=== PATIENT | female | born 1985 | race African-American/Black ===

== ENCOUNTER 2018-10-03 11:10 | Observation (INO) | payer OTHER ==
[2018-10-03 13:34] LABS: ADD MAN DIFF? NO
[2018-10-03] MEDS: DIPHTH/TET/ACEL PERTUSS (ADULT) 0.5 ML VIAL IM* (13:56)
[2018-10-03 13:58] LABS: ADD UMIC YES; UR ASCORBIC ACID NEGATIVE (NEGATIVE); UR BACTERIA FEW /HPF (NONE SEEN); UR BILIRUBIN (Dip) NEGATIVE (NEGATIVE); UR BLOOD (Dip) 3+ mg/dL (NEGATIVE); UR CLARITY CLOUDY (CLEAR); UR COLOR AMBER (YELLOW); UR GLUCOSE (Dip) NEGATIVE (NEGATIVE); UR KETONES (Dip) NEGATIVE (NEGATIVE); UR LEUKOCYTE ESTERASE (Dip) 2+ Leu/ul (NEGATIVE); UR NITRITE (Dip) NEGATIVE (NEGATIVE); UR RBC > 182 /HPF (0-5); UR TOTAL PROTEIN (Dip) 2+ mg/dl (NEGATIVE); UR UROBILINOGEN (Dip) 1+ mg/dL (NEGATIVE); UR WBC > 182 /HPF (0-5)
[2018-10-03 14:07] LABS: INR 1.01; PROTIME 13.4 Sec (11.9-14.9)
[2018-10-03 14:08] LABS: PARTIAL THROMBOPLASTIN TIME 31.1 Sec (23.0-35.0)
[2018-10-03 14:11] LABS: LIPASE 66 U/L (23-300)
[2018-10-03 14:11] LABS: ALANINE AMINOTRANSFERASE 42 IU/L (13-69); ALBUMIN 3.6 g/dl (3.3-4.9); ALKALINE PHOSPHATASE 101 IU/L (42-121); ANION GAP 12 (5-13); ASPARTATE AMINO TRANSFERASE 34 IU/L (15-46); BILIRUBIN,INDIRECT 0.1 mg/dl (0-1.1); BILIRUBIN,TOTAL 0.1 mg/dl (0.2-1.3); BLOOD UREA NITROGEN 14 mg/dl (7-20); CALCIUM 9.4 mg/dl (8.4-10.2); CARBON DIOXIDE 24 mmol/L (21-31); CHLORIDE 105 mmol/L (97-110); CREATININE 0.67 mg/dl (0.44-1.00); Estimated GFR > 60 mL/min (>60); GLUCOSE 116 mg/dl (70-220); POTASSIUM 3.8 mmol/L (3.5-5.1); SODIUM 141 mmol/L (135-144); TOTAL PROTEIN 7.6 g/dl (6.1-8.1)
[2018-10-03 14:13] LABS: ABNORMAL IP MESSAGE 1; BASOPHILS % 0.3 % (0.0-2.0); EOSINOPHILS % 0.7 % (0.0-7.0); HEMATOCRIT 22.2 % (37.0-47.0); LYMPHOCYTES # 1.3 10^3/ul (0.8-2.9); LYMPHOCYTES % 21.9 % (15.0-51.0); MEAN CORPUSCULAR HEMOGLOBIN 15.6 pg (29.0-33.0); MEAN CORPUSCULAR HGB CONC 27.9 g/dl (32.0-37.0); MEAN CORPUSCULAR VOLUME 55.9 fl (82.0-101.0); MEAN PLATELET VOLUME 9.7 fl (7.4-10.4); MONOCYTE # 0.7 10^3/ul (0.3-0.9); MONOCYTES % 10.9 % (0.0-11.0); NEUTROPHIL # 3.9 10^3/ul (1.6-7.5); NEUTROPHILS % 65.7 % (39.0-77.0); PLATELET COUNT 349 10^3/UL (140-415); RED BLOOD COUNT 3.97 10^6/ul (4.20-5.40); RED CELL DISTRIBUTION WIDTH 21.2 % (11.5-14.5)
[2018-10-03 14:14] LABS: POSITIVE DIFF @See below
[2018-10-03 14:16] LABS: HEMOGLOBIN 6.2 g/dl (12.0-16.0); PATH REVIEW? YES
[2018-10-03 14:51] LABS: RETICULOCYTE RBC 3.93
[2018-10-03 15:17] LABS: LACTATE DEHYDROGENASE 474 IU/L (313-618)
[2018-10-03 15:20] LABS: ANISOCYTOSIS 3+ (0-0); BAND NEUTROPHILS #M 0.1 10^3/ul (0.0-0.6); BAND NEUTROPHILS % (M) 3 % (0-4); EOSINOPHILS % (M) 2 % (0-7); HYPOCHROMASIA 3+ (0-0); LYMPHOCYTES % (M) 17 % (15-51); MICROCYTOSIS 3+ (0-0); MONOCYTE #M 0.3 10^3/ul (0.3-0.9); MONOCYTES % (M) 5 % (0-11); OVALOCYTES 1+ (0-0); PLATELET ESTIMATE NORMAL; POIKILOCYTOSIS 1+ (0-0); SEG NEUT #M 4.4 10^3/ul (1.6-7.5); SEGMENTED NEUTROPHILS (M) % 73 % (39-77)
[2018-10-03 15:28] LABS: TOTAL IRON BINDING CAPACITY 432 ug/dl (241-421)
[2018-10-03] MEDS: CIPROFLOXACIN 400MG/D5W 200 ML IVPB (15:37)
[2018-10-03 15:39] LABS: IRON < 10 ug/dl (35-150)
[2018-10-03 15:53] LABS: FERRITIN 15.9 ng/ml (6.2-137.0)
[2018-10-03] MEDS ORDERED: ONDANSETRON 4 MG INJ IV ×2 (16:00→17:30)
[2018-10-03] MEDS ORDERED: ACETAMINOPHEN 325 MG TAB PO ×2 (16:00→17:30)
[2018-10-03] MEDS ORDERED: NACL 0.9% 3 ML SYG IV (17:30)
[2018-10-03] MEDS ORDERED: morphine 2 MG INJ IV (17:30)
[2018-10-03] MEDS ORDERED: HYDROCODONE/APAP (5/325) TAB PO (17:30)
[2018-10-03] MEDS ORDERED: DOCUSATE SODIUM 100 MG CAP PO (17:30)
[2018-10-03 18:45] LABS: IMMEDIATE SPIN CROSSMATCH 1 2
[2018-10-04] MEDS: LEVOFLOXACIN 500MG/D5W (PMX) 100 ML IVPB ×2 (00:29→17:19)
[2018-10-04 03:45] LABS: AMPHETAMINE/METHAMPHETAMINE Negative (NEGATIVE); BARBITURATES Negative (NEGATIVE); BENZODIAZEPINES Negative (NEGATIVE); CANNABINOIDS Negative (NEGATIVE); COCAINE Negative (NEGATIVE); OPIATES Negative (NEGATIVE)
[2018-10-04] MEDS: PANTOPRAZOLE 40 MG INJ IV (05:31)
[2018-10-04 06:21] LABS: HEMOGLOBIN A1C 5.8 % (0-5.9)
[2018-10-04 07:26] LABS: ADD MAN DIFF? NO
[2018-10-04 07:48] LABS: ABNORMAL IP MESSAGE 1; BASOPHILS % 0.4 % (0.0-2.0); EOSINOPHILS # 0.1 10^3/ul (0.0-0.5); EOSINOPHILS % 1.2 % (0.0-7.0); HEMATOCRIT 26.6 % (37.0-47.0); HEMOGLOBIN 7.7 g/dl (12.0-16.0); LYMPHOCYTES # 1.8 10^3/ul (0.8-2.9); MEAN CORPUSCULAR HEMOGLOBIN 17.6 pg (29.0-33.0); MEAN CORPUSCULAR HGB CONC 28.9 g/dl (32.0-37.0); MEAN CORPUSCULAR VOLUME 60.9 fl (82.0-101.0); MONOCYTE # 0.8 10^3/ul (0.3-0.9); MONOCYTES % 9.7 % (0.0-11.0); NEUTROPHIL # 5.6 10^3/ul (1.6-7.5); NEUTROPHILS % 66.5 % (39.0-77.0); PLATELET COUNT 338 10^3/UL (140-415); RED BLOOD COUNT 4.37 10^6/ul (4.20-5.40)
[2018-10-04 07:48] LABS: WHITE BLOOD COUNT 8.4 10^3/ul (4.8-10.8)
[2018-10-04 07:53] LABS: POSITIVE DIFF @See below
[2018-10-04] MEDS: SOD FERRIC GLUC COMPLX 125 MG in SOD CHLORIDE 0.9% 100 ML IVPB (12:29)
[2018-10-04 14:23] LABS: FOLATE 10.3 ng/ml (2.8-20.0)
[2018-10-05] MEDS: PANTOPRAZOLE (EC) 40 MG TAB PO (05:34)
[2018-10-05 09:25] LABS: ADD MAN DIFF? NO
[2018-10-05 09:27] LABS: WHITE BLOOD COUNT 9.3 10^3/ul (4.8-10.8)
[2018-10-05 09:27] LABS: ABNORMAL IP MESSAGE 1; BASOPHILS % 0.3 % (0.0-2.0); EOSINOPHILS # 0.2 10^3/ul (0.0-0.5); HEMATOCRIT 28.2 % (37.0-47.0); HEMOGLOBIN 8.3 g/dl (12.0-16.0); LYMPHOCYTES # 2.2 10^3/ul (0.8-2.9); LYMPHOCYTES % 23.3 % (15.0-51.0); MEAN CORPUSCULAR HGB CONC 29.4 g/dl (32.0-37.0); MEAN CORPUSCULAR VOLUME 61.2 fl (82.0-101.0); MEAN PLATELET VOLUME 9.7 fl (7.4-10.4); MONOCYTE # 0.7 10^3/ul (0.3-0.9); MONOCYTES % 7.7 % (0.0-11.0); PLATELET COUNT 430 10^3/UL (140-415); RED BLOOD COUNT 4.61 10^6/ul (4.20-5.40); RED CELL DISTRIBUTION WIDTH 26.8 % (11.5-14.5)
[2018-10-05 09:41] LABS: POSITIVE DIFF @See below
[2018-10-05 09:50] LABS: ANION GAP 8 (5-13); BLOOD UREA NITROGEN 14 mg/dl (7-20); CALCIUM 9.4 mg/dl (8.4-10.2); CARBON DIOXIDE 25 mmol/L (21-31); CHLORIDE 108 mmol/L (97-110); CREATININE 0.61 mg/dl (0.44-1.00); Estimated GFR > 60 mL/min (>60); GLUCOSE 114 mg/dl (70-220); POTASSIUM 4.3 mmol/L (3.5-5.1); SODIUM 141 mmol/L (135-144)
[2018-10-05] MEDS: SOD FERRIC GLUC COMPLX 125 MG in SOD CHLORIDE 0.9% 100 ML IVPB (12:13)
[2018-10-05] MEDS: SERTRALINE 50 MG TAB PO (14:04)
[2018-10-05] MEDS: LEVOFLOXACIN 500MG/D5W (PMX) 100 ML IVPB (17:36)
[2018-10-05 17:46] LABS: HAPTOGLOBIN 232 mg/dL (43-212); TRANSFERRIN 321 mg/dL (188-341)
[2018-10-06] MEDS: PANTOPRAZOLE (EC) 40 MG TAB PO (06:03)
[2018-10-06 08:47] LABS: ADD MAN DIFF? NO
[2018-10-06 08:49] LABS: WHITE BLOOD COUNT 9.3 10^3/ul (4.8-10.8)
[2018-10-06 08:49] LABS: ABNORMAL IP MESSAGE 1; BASOPHILS % 0.3 % (0.0-2.0); EOSINOPHILS # 0.2 10^3/ul (0.0-0.5); EOSINOPHILS % 1.9 % (0.0-7.0); HEMATOCRIT 28.3 % (37.0-47.0); HEMOGLOBIN 8.1 g/dl (12.0-16.0); LYMPHOCYTES # 2.4 10^3/ul (0.8-2.9); MEAN CORPUSCULAR HEMOGLOBIN 17.8 pg (29.0-33.0); MEAN CORPUSCULAR HGB CONC 28.6 g/dl (32.0-37.0); MEAN CORPUSCULAR VOLUME 62.1 fl (82.0-101.0); MEAN PLATELET VOLUME 9.6 fl (7.4-10.4); MONOCYTE # 0.5 10^3/ul (0.3-0.9); MONOCYTES % 4.8 % (0.0-11.0); NEUTROPHIL # 5.8 10^3/ul (1.6-7.5); NEUTROPHILS % 62.8 % (39.0-77.0); PLATELET COUNT 451 10^3/UL (140-415); RED BLOOD COUNT 4.56 10^6/ul (4.20-5.40); RED CELL DISTRIBUTION WIDTH 27.9 % (11.5-14.5)
[2018-10-06 08:52] LABS: POSITIVE DIFF @See below
[2018-10-06 09:08] LABS: ANION GAP 10 (5-13); BLOOD UREA NITROGEN 16 mg/dl (7-20); CALCIUM 8.8 mg/dl (8.4-10.2); CARBON DIOXIDE 23 mmol/L (21-31); CHLORIDE 108 mmol/L (97-110); CREATININE 0.56 mg/dl (0.44-1.00); Estimated GFR > 60 mL/min (>60); GLUCOSE 197 mg/dl (70-220); POTASSIUM 4.1 mmol/L (3.5-5.1); SODIUM 141 mmol/L (135-144)
[2018-10-06] MEDS: SERTRALINE 50 MG TAB PO (09:56)
[2018-10-06] MEDS: SOD FERRIC GLUC COMPLX 125 MG in SOD CHLORIDE 0.9% 100 ML IVPB ×2 (13:00→13:08)
== END 2018-10-06 15:30 | disposition home or self-care (01) ==
LOC: FTE 11:10 → PP2 15:54
PROVIDERS: Pediatrics
DX: D50.9 Iron deficiency anemia, unspecified (principal); N39.0 Urinary tract infection, site not specified; S50.811A Abrasion of right forearm, initial encounter; Y09 Assault by unspecified means; F17.210 Nicotine dependence, cigarettes, uncomplicated; Z23 Encounter for immunization
CPT/HCPCS: 36430; 76856; 80048; 80053; 80307; 81001; 81025; 82607; 82728; 82746; 83010; 83036; 83540; 83615; 83690; 84466; 84702; 85025; 85045; 85610; 85730; 86850; 86880; 86885; 86900; 86901; 86920; 87086; 90471; 90715; 96374; 99285-25; G0378